=== PATIENT | female | born 1995 | race Caucasian/White ===

== ENCOUNTER 2018-02-21 14:39 | Emergency (ER) | payer BC ==
--- NOTE | 2018-02-21 15:32 | EDPHY ---
H & P Time Seen by Provider: 02/21/18 15:16 HPI/ROS: CHIEF COMPLAINT: Bit by a cat HISTORY OF PRESENT ILLNESS: The patient is a 22-year-old female who presents emergency department with right arm redness after being bit by CT 2 days ago. Patient states that she found the CT on the street. It did have an ill- appearing eye. She has had mild redness at the bite site. No fevers or chills. No numbness or tingling. Patient is unsure of the Cat's vaccinations status. The Cat was not quarantine. REVIEW OF SYSTEMS: My complete review of systems is negative except as mentioned in the HPI. Past Medical/Surgical History: Includes OCD, depression, anxiety Smoking Status: Never smoked Physical Exam: General Appearance: Alert and no distress. Head: Pupils equal. Normal. Respiratory: No respiratory distress. Cardiac: regular rate and rhythm. Extremities: Patient's right forearm has mild erythema. There are puncture wounds. There is no pus or discharge. No streaking up the arm. No lymphadenopathy. Skin: No rashes or lesions. Neuro: Alert. Normal mood and affect. Constitutional: Initial Vital Signs Temperature (C) 36.6 C 02/21/18 14:48 Heart Rate 98 02/21/18 14:48 Respiratory Rate 16 02/21/18 14:48 Blood Pressure 137/94 H 02/21/18 14:48 O2 Sat (%) 97 02/21/18 14:48 O2 Delivery Mode Room Air Allergies/Adverse Reactions: No Known Allergies Allergy (Unverified 02/21/18 14:52) Home Medications: Medication Instructions Recorded AMOXICILLIN 02/21/18 Amoxicillin/Clavulanate Pot 875 mg PO BID 10 Days tab 02/21/18 [Augmentin 875 mg tab] Zoloft 100mg (*) 150 mg 02/21/18 Medical Decision Making ED Course/Re-evaluation: In the emergency department discussed possible etiologies with the patient. I answered all questions. Patient had a friend present who was a nurse practitioner. She states she spoke with Infectious Disease who recommended prophylaxis for rabies. Infectious disease was paged. I discussed the case with Dr. Ponce from Infectious Disease. She recommended the patient receive immunoglobulin as well as rabies vaccine. Pt given 20 units/kilogram of immunoglobulin and rabies vaccination. Patient was also given Augmentin 875 mg orally. I discussed the need for close follow-up with the patient. She was given instructions for ongoing dosing. I gave the patient printed handout from the [facility] regarding rabies vaccination and treatment. Differential Diagnosis: My differential includes but is not limited to cellulitis, abscess, rabies - Data Points Medications Given: Discontinued Medications Amoxicillin/Clavulanate Potassium (Augmentin 875mg) 875 mg PO EDNOW ONE PRN Reason: Protocol Stop: 02/21/18 15:46 Last Admin: 02/21/18 15:53 Dose: 875 mg Departure - Departure Disposition: Home, Routine, Self-Care Clinical Impression: Cat bite Qualifiers: Encounter type: initial encounter Qualified Code(s): W55.01XA - Bitten by cat, initial encounter Condition: Good Instructions: Animal Bite (ED), Rabies Vaccine (ED), Rabies Immune Globulin ( By injection) Additional Instructions: It has been recommended that you receive a rabies vaccination. You will receive a total of 4 doses of rabies vaccination. You will receive the 1st dose today. You will also need additional doses on the 3rd, 7 and 14 days after year first vaccination (today). These can be obtained at the infectious disease office. Contact information has been provided. If it is the weekend and the infectious disease office is closed you can come to the emergency department for your vaccination dose. Take your entire course of antibiotics. Return with increasing redness, swelling, pain or any other concerns. Referrals: Randy Bettencourt MD [Medical Doctor] - 02/24/18 Prescriptions: Amoxicillin/Clavulanate Pot [Augmentin 875 mg tab] 875 mg PO BID 10 Days tab
[2018-02-21] MEDS ORDERED: RABIES IMMUNE GLOBULIN/PF 300 UNIT/ML VIAL IF ONE ×2 (15:43→16:00)
[2018-02-21] MEDS ORDERED: AMOXICILLIN/CLAVULANATE POT 875/125 MG TAB PO ONE (15:45)
[2018-02-21] MEDS ORDERED: RABIES VACC, HUMAN DIPLOID/PF 2.5 UNIT VIAL (RABAVERT) IM ONE (15:45)
[2018-02-21 16:45] VITALS: BP 135/85
== END 2018-02-21 16:43 | disposition home or self-care (01) ==
DX: S50.871A Other superficial bite of right forearm, initial encounter (principal); Z23 Encounter for immunization; W55.01XA Bitten by cat, initial encounter